=== PATIENT | female | born 1990 | race Caucasian/White ===

== ENCOUNTER 2018-05-29 07:59 | Outpatient (CLI) | payer BC ==
--- NOTE | 2018-05-29 09:06 | ULT ---
RIGHT UPPER QUADRANT ULTRASOUND: Date: 05/29/18 INDICATION: Pain. FINDINGS: There is no focal hepatic lesion. No acute gallbladder pathology. Common duct measures 4.0 mm, within normal limits. No ascites. IMPRESSION: No acute gallbladder pathology. POS: JOSÉ MIGUEL
== END 2018-05-29 08:00 | disposition home or self-care (01) ==
LOC: SCSULT 07:59
PROVIDERS: ATTEND Internal Medicine
DX: K21.9 Gastro-esophageal reflux disease without esophagitis (principal); R10.33 Periumbilical pain; R19.4 Change in bowel habit
CPT/HCPCS: 76705

== ENCOUNTER 2018-07-18 06:03 | Day surgery (SDC) | payer BC ==
[2018-07-17 15:08] VITALS: BMI 37.8
--- NOTE | 2018-07-18 11:54 | OP ---
DATE OF PROCEDURE: 07/18/2018 PROCEDURE PERFORMED: Esophagogastroduodenoscopy with biopsy. INDICATIONS FOR PROCEDURE: Midepigastric abdominal pain, dysphagia. DESCRIPTION OF PROCEDURE: After the risks and benefits of the procedure were explained to the patient including risks of bleeding, infection, perforation, reactions to anesthesia, aspiration, and/or pain, informed consent was obtained. The patient was then taken to the endoscopy suite, where deep sedation was administered via propofol and anesthesia support. Once adequate sedation was achieved, the standard gastroscope was introduced into the mouth with intubation of the esophagus, stomach, and the proximal small intestine with the findings listed below. The patient tolerated the procedure well with no immediate perioperative complications. Upon completion of the procedure, all equipment was removed from the patient and she was transferred to Day Stay in satisfactory condition. FINDINGS: Esophagus: Normal-appearing mucosa was seen in the proximal, mid, and distal esophagus, however, it did exhibit a slight "train track" appearance that was present along the entire longitudinal length of the esophagus. Otherwise, there was no evidence of erosions, ulcerations, mass, lesions, stricture/stenosis or active/recent bleeding. The diaphragmatic pinch was seen at 39 cm while the GE junction was well seen at 37 cm denoting a 2 cm hiatal hernia. One small erosion was seen at the gastroesophageal junction measuring less than 5 mm in length and did not exhibit any overt ulceration or active/recent bleeding. Stomach: Normal-appearing mucosa was seen in the gastric cardia, fundus, body, greater curvature, antrum, and incisura. The hiatal hernia was seen on gastric retroflexion. Otherwise, there was no evidence of erosions, ulcerations, mass, lesions, or active/recent bleeding. Duodenum: Normal-appearing mucosa was seen in both the duodenal bulb and second portion of the duodenum. There was no evidence of erosions, ulcerations, mass, lesions, or active/recent bleeding. IMPRESSION: 1. Mitchell grade A reflux-mediated erosive esophagitis. 2. A 2-cm hiatal hernia. 3. A finding suspicious for eosinophilic esophagitis, status post biopsies. RECOMMENDATIONS: 1. We will follow up on biopsy results with further care determined by these results. 2. We would continue PPI daily for acid reflux symptoms and/or eosinophilic esophagitis. 3. Continue to follow standard acid reflux precautions. 4. Follow up in the [facility] Clinic in 4 weeks for further management. Job ID: [id number]
[2018-07-18] MEDS ORDERED: PROPOFOL 200 MG/20 ML VIAL ONE (15:25)
== END 2018-07-18 08:35 | disposition home or self-care (01) ==
LOC: SDC 06:03
PROVIDERS: ATTEND Internal Medicine
PROC: 0DB58ZX Excision of Esophagus, Via Natural or Artificial Opening Endoscopic, Diagnostic (ICD-10-PCS; principal; 2018-07-18)
DX: K21.0 Gastro-esophageal reflux disease with esophagitis (principal); K25.9 Gastric ulcer, unspecified as acute or chronic, without hemorrhage or perforation; K44.9 Diaphragmatic hernia without obstruction or gangrene; Z79.899 Other long term (current) drug therapy; Z88.5 Allergy status to narcotic agent; Z91.040 Latex allergy status; Z91.011 Allergy to milk products
CPT/HCPCS: 88305; 88312; 88313; J2704

== ENCOUNTER 2019-06-04 12:47 | Emergency (ER) | payer BC, SELFPAY ==
[2019-06-04 13:30] LABS: #Basophils 0.1 thou/uL (0.0-0.2); #Eosinphils 0.1 thou/uL (0.0-0.7); #Lymphocytes 2.8 thou/uL (1.20-3.40); #Monocytes 0.7 thou/uL (0.11-0.59); #Neutrophils 3.1 thou/uL (1.40-6.50); %Basophils 1.3 % (0.0-1.0); %Lymphocytes 40.6 % (21.0-51.0); %Monocytes 10.8 % (0.0-10.0); %Neutrophils 45.3 % (42.0-75.0); Hemoglobin 14.1 g/dL (12.0-16.0); Mean Corpuscular HGB CONC 33.4 g/dL (32.0-36.0); Mean Corpuscular Hemoglobin 30.3 pg (27.0-31.0); Mean Corpuscular Volume 90.9 fL (78.0-98.0); Mean Platelet Volume 7.6 fL (7.4-10.4); Platelet Count 284 thou/uL (130-400); RBC Distribution Width 11.7 % (11.5-14.5); Red Blood Cell (RBC) Count 4.64 mill/uL (4.20-5.40); White Blood Cell (WBC) Count 6.9 thou/uL (4.8-10.8)
[2019-06-04 13:54] LABS: ALT (SGPT) 26 U/L (8-55); AST (SGOT) 29 U/L (5-34); Albumin 4.6 g/dL (3.5-5.0); Alkaline Phosphatase 81 U/L (40-110); Anion Gap 15 mmol/L (10-20); BUN (Urea Nitrogen) 15 mg/dL (7.0-18.7); Bilirubin, Total 0.8 mg/dL (0.2-1.2); Calc. Creatinine Clearance 0 mL/min (70-130); Carbon Dioxide 25 mmol/L (22-29); Chloride 104 mmol/L (98-107); Estimated GFR-MDRD 66; Globulin 3.1 g/dL (2.4-3.5); Glucose 86 mg/dL (70-105); Lipase 55 U/L (8-78); Potassium 3.4 mmol/L (3.5-5.1); Protein, Total 7.7 g/dL (6.0-8.3); Sodium 141 mmol/L (136-145)
[2019-06-04 14:03] LABS: BHCG - Serum Negative (NEGATIVE); Pregs Control Background? CLEAR/WHITE (CLR/WHITE); Pregs Control Bar Appear? YES (CONTROL BAR)
== END 2019-06-04 14:42 | disposition home or self-care (01) ==
LOC: ERS 12:47
DX: E86.0 Dehydration (principal); R11.2 Nausea with vomiting, unspecified; R19.7 Diarrhea, unspecified; G43.909 Migraine, unspecified, not intractable, without status migrainosus; F41.9 Anxiety disorder, unspecified; Z79.899 Other long term (current) drug therapy
CPT/HCPCS: 36415; 80053; 83690; 84703; 85025; 96360

== ENCOUNTER 2021-11-21 17:18 | Outpatient (CLI) | payer BC, OTHER | END 2021-11-21 17:19 | disposition home or self-care (01) | LOC: LABBT 17:18 | PROVIDERS: ATTEND Neurological Surgery | DX: M51.16 Intervertebral disc disorders with radiculopathy, lumbar region (principal); Z20.822 Contact with and (suspected) exposure to COVID-19 | CPT/HCPCS: 87811 ==

== ENCOUNTER 2021-11-23 09:49 | Day surgery (SDC) | payer BC, OTHER ==
[2021-11-21 11:56] VITALS: BMI 37.8
[2021-11-23] MEDS ORDERED: Scopolamine 1.5 mg/72 hour Patch ONE (11:06)
[2021-11-23] MEDS ORDERED: Bupivacaine HCl 0.5%/Epinephrine 1:200,000/PF 30 ml Vial ONE (12:26)
[2021-11-23] MEDS ORDERED: Thrombin 5000 UNITS/5 ML VIAL ONE (12:26)
[2021-11-23] MEDS ORDERED: Levofloxacin 500 mg/D5W 100 ml Premix Bag ONE (12:36)
[2021-11-23] MEDS ORDERED: Clindamycin/D5W 900 mg/50 ml Premix Bag ONE (12:36)
[2021-11-23] MEDS ORDERED: Midazolam HCl 2 mg/2 ml Vial ONE ×2 (12:53→13:23)
[2021-11-23] MEDS ORDERED: ePHEDrine Sulfate 50 MG/10 ML VIAL ONE (13:22)
[2021-11-23] MEDS ORDERED: fentaNYL Citrate/PF 100 MCG/2 ML SYRINGE ONE (13:23)
[2021-11-23] MEDS ORDERED: SUGAMMADEX SODIUM 200 MG/2 ML VIAL ONE (13:27)
[2021-11-23] MEDS ORDERED: HYDROmorphone 0.5 MG/0.5 ML SYRINGE ONE (13:27)
[2021-11-23] MEDS ORDERED: Lidocaine 1% MPF 2 ML VIAL ONE (13:38)
[2021-11-23] MEDS ORDERED: PROPOFOL 200 MG/20 ML VIAL ONE (13:38)
[2021-11-23] MEDS ORDERED: Rocuronium Bromide 10 MG/ML (10ML VIAL) ONE (13:38)
[2021-11-23] MEDS ORDERED: Ondansetron PF 4 MG/2 ML Vial ONE ×2 (13:38→16:18)
[2021-11-23] MEDS ORDERED: Dexamethasone 20 MG/5 ML VIAL ONE (13:38)
[2021-11-23] MEDS ORDERED: Ketorolac Tromethamine 30 MG/ML VIAL ONE (14:57)
[2021-11-23] MEDS ORDERED: Fentanyl 100 MCG/2 ML VIAL ONE (14:58)
== END 2021-11-23 16:50 | disposition home or self-care (01) ==
LOC: SDC 09:49
PROVIDERS: ATTEND Neurological Surgery
PROC: 01NB0ZZ Release Lumbar Nerve, Open Approach (ICD-10-PCS; principal; 2021-11-23)
PROC: 0SB20ZZ Excision of Lumbar Vertebral Disc, Open Approach (ICD-10-PCS; principal; 2021-11-23)
DX: M51.16 Intervertebral disc disorders with radiculopathy, lumbar region (principal); Z79.1 Long term (current) use of non-steroidal anti-inflammatories (NSAID); Z79.899 Other long term (current) drug therapy; Z88.0 Allergy status to penicillin; Z88.5 Allergy status to narcotic agent; Z91.040 Latex allergy status
CPT/HCPCS: 76000; J1100; J1170; J1885; J1956; J2250; J2405; J2704; J3010; J3490